=== PATIENT | female | born 1995 | race Caucasian/White ===

== ENCOUNTER → 2021-01-16 10:08 | Outpatient (CLI) | payer OTHER, SELFPAY ==
[2021-01-16 20:40] LABS: Urine N gonorrhoeae NOT DETECTED
[2021-01-16 21:03] LABS: Urine Chlamydia NOT DETECTED
[2021-01-18 07:16] LABS: RPR Screen Non Reactive (Non Reactive)
[2021-01-20 17:42] LABS: HIV 1 & 2 Ab/Ag 4th Gen Combo NEGATIVE (NEGATIVE); Hep C Virus Ab w/Reflex Quant NEGATIVE s/c (NEGATIVE)
== END ==
PROVIDERS: PCP Physician Assistant Medical; Visit Provider Physician Assistant Medical
DX: Z20.2 Contact with and (suspected) exposure to infections with a predominantly sexual mode of transmission (principal)
CPT/HCPCS: 86592; 86803; 87389; 87491; 87591

== ENCOUNTER → 2021-03-05 10:18 | Outpatient (CLI) | payer OTHER, SELFPAY ==
[2021-03-05 19:16] LABS: Add Manual Diff / Slide Review NO; Basophils Absolute Auto 0 /uL (0-100); Basophils Percent Auto 0.5 % (0-2); Eosinophils Absolute Auto 100 /uL (0-450); Eosinophils Percent Auto 2.9 % (2-4); Hematocrit 41.4 % (36-46); Hemoglobin 13.9 g/dL (12.0-16.0); Lymphocytes Absolute Auto 1000 /uL (1100-4500); Lymphocytes Percent Auto 21.7 % (25-40); Mean Corpuscular HGB Conc 33.5 % (30-36); Mean Corpuscular Hemoglobin 30.7 PG (26-34); Mean Corpuscular Volume 91.4 fL (80-100); Monocytes Absolute Auto 500 /uL (0-900); Monocytes Percent Auto 9.8 % (3-14); Neutrophils Absolute Auto 3000 /uL (1500-7000); Neutrophils Percent Auto 65.1 % (50-75); Platelet Count 320 X10^3/uL (150-400); Red Blood Cell Count 4.53 X10^6/uL (4.0-5.2); Red Cell Distribution Width 12.7 % (11.6-14.8); White Blood Cell Count 4.6 X10^3/uL (4.5-11.0)
[2021-03-05 19:23] LABS: Alanine Aminotransferase 16 IU/L (<35); Albumin 4.7 g/dL (3.5-5.0); Albumin Globulin Ratio 1.6 (1.0-2.8); Alkaline Phosphatase 49 U/L (38-126); Aspartate Aminotransferase 25 IU/L (14-36); BUN Creatinine Ratio 20.8 (6-22); Blood Urea Nitrogen 15 mg/dL (7-17); Calcium 9.8 mg/dL (8.4-10.2); Carbon Dioxide 32 mmol/L (22-32); Chloride 100 mmol/L (98-107); Estimated Glomerular Filt Rate > 60.0 mL/min (>60); Glucose 88 mg/dL (70-100); HEMOLYSIS < 15 (0-50); Potassium 4.2 mmol/L (3.4-5.1); Sodium 140 mmol/L (137-145); Total Protein 7.7 g/dL (6.3-8.2)
[2021-03-05 19:49] LABS: TSH w/ Reflex to FT4 2.58 uIU/mL (0.47-4.68)
== END ==
PROVIDERS: PCP Physician Assistant Medical; Visit Provider Physician Assistant
DX: F32.9 Major depressive disorder, single episode, unspecified (principal); F41.9 Anxiety disorder, unspecified; Z79.899 Other long term (current) drug therapy; Z83.49 Family history of other endocrine, nutritional and metabolic diseases
CPT/HCPCS: 80053; 84443; 85025

== ENCOUNTER → 2021-04-25 09:12 | Outpatient (CLI) | payer OTHER, SELFPAY ==
[2021-04-25 20:04] LABS: Add Manual Diff / Slide Review NO; Basophils Absolute Auto 0 /uL (0-100); Basophils Percent Auto 0.7 % (0-2); Eosinophils Absolute Auto 400 /uL (0-450); Eosinophils Percent Auto 8.5 % (2-4); Hematocrit 40.4 % (36-46); Hemoglobin 13.4 g/dL (12.0-16.0); Lymphocytes Absolute Auto 1100 /uL (1100-4500); Mean Corpuscular HGB Conc 33.1 % (30-36); Mean Corpuscular Volume 90.7 fL (80-100); Monocytes Absolute Auto 500 /uL (0-900); Monocytes Percent Auto 10.2 % (3-14); Neutrophils Absolute Auto 2500 /uL (1500-7000); Neutrophils Percent Auto 55.6 % (50-75); Platelet Count 280 X10^3/uL (150-400); Red Blood Cell Count 4.46 X10^6/uL (4.0-5.2); Red Cell Distribution Width 13.1 % (11.6-14.8); White Blood Cell Count 4.5 X10^3/uL (4.5-11.0)
[2021-04-25 21:30] LABS: Urine N gonorrhoeae NOT DETECTED
[2021-04-25 21:40] LABS: Urine Chlamydia DETECTED
[2021-04-25 21:49] LABS: HIV 1 & 2 Ab/Ag 4th Gen Combo NEGATIVE (NEGATIVE); Hep C Virus Ab w/Reflex Quant NEGATIVE s/c (NEGATIVE)
[2021-04-27 09:12] LABS: RPR Screen Non Reactive (Non Reactive)
[2021-04-28 13:09] LABS: HSV I/II IgM <0.91 Ratio (0.00-0.90)
== END ==
PROVIDERS: PCP Physician Assistant Medical; Visit Provider Physician Assistant Medical
DX: Z20.2 Contact with and (suspected) exposure to infections with a predominantly sexual mode of transmission (principal); R79.9 Abnormal finding of blood chemistry, unspecified
CPT/HCPCS: 85025; 86592; 86694; 86803; 87389; 87491; 87591

== ENCOUNTER → 2021-05-08 12:11 | Outpatient (CLI) | payer OTHER, SELFPAY ==
[2021-05-08 20:23] LABS: Urine N gonorrhoeae NOT DETECTED
[2021-05-08 20:34] LABS: Urine Chlamydia NOT DETECTED
== END ==
PROVIDERS: PCP Physician Assistant Medical; Visit Provider Physician Assistant Medical
DX: Z20.2 Contact with and (suspected) exposure to infections with a predominantly sexual mode of transmission (principal)
CPT/HCPCS: 87491; 87591

== ENCOUNTER → 2021-09-03 13:42 | Outpatient (CLI) | payer OTHER, SELFPAY ==
--- NOTE | 2021-10-10 16:50 | P.HOLT.S_ITS ---
Template Worker Report Referral & Results Date Patient Seen: 09/03/21 Requesting provider: Margo Dave Indication: Palpitations Duration of monitoring (days): 12 Diary information: There were 145 patient triggered events and 1 patient diary entry Patient triggered events were variably associated with (within 45 seconds) sinus rhythm, simple PACs, and simple PVCs Patient diary events were associated with sinus rhythm and simple PVCs Data: Minimum heart rate identified was 40 beats per minute at 01:38 on 09/09/2021 Maximum heart rate was 163 beats per minute at 10:46 on 09/06/2021 Less than 1% of identified beats were ventricular or supraventricular ectopic in origin, which would classify them as rare. 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 Patient events seem to be associated with simple PACs and PVCs Clinical correlation suggested
== END ==
PROVIDERS: Referring Provider Physician Assistant; Visit Provider Physician Assistant
DX: R00.2 Palpitations (principal)
CPT/HCPCS: 93246; 93248

== ENCOUNTER 2022-05-08 10:49 | Emergency (ER) | payer OTHER, SELFPAY ==
[2022-05-08 11:02] VITALS: BP 125/80; PULSE 83; RESP 14; TEMP 36.7; O2SAT 99; BMI 22.9
--- NOTE | 2022-05-08 11:23 | DI.RAD.S_ITS ---
PROCEDURE: XR CHEST 1V INDICATIONS: chest pain TECHNIQUE: One view of the chest was acquired. COMPARISON: None. FINDINGS: Surgical changes and devices: None. Lungs and pleura: Lungs are clear. No pleural effusions or pneumothorax. Mediastinum: Mediastinal contours appear normal. Heart size is normal. Bones and chest wall: No suspicious bony lesions. Overlying soft tissues appear unremarkable. IMPRESSION: No acute pulmonary process. Dictated by: Monserrat Shepherd M.D. on 05/08/2022 at 11:58 Approved by: Monserrat Shepherd M.D. on 05/08/2022 at 11:58
--- NOTE | 2022-05-08 11:25 | ED_ITS ---
HPI - Extremity Problem General Chief complaint: Extremity Problem,Nontraumatic Stated complaint: pain LT side shoulder looking up/down makes worse Time Seen by Provider: 05/08/22 11:16 Source: patient Mode of arrival: Ambulatory History of Present Illness HPI Narrative: Patient 27-year-old female complains of reproducible left scapular pain that radiates to the left shoulder. Increased pain with rotating her head and neck to the right and tilting her chin up. Patient states she was sitting in her car riding the [place] when she had sudden onset discomfort. She got up to walk around and was on her phone to keep distracted however she became dizzy and diaphoretic. No nausea no vomiting no syncope. Pain is better now. No primary family history of coronary disease. Patient's not smoke. Denies any drug use. Does have history of anxiety and depression. No prior history coronary disease for herself. Did have Holter monitor october of this year with primary care. 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 Patient then seemed to be associated with simple PACs and PVCs. Related Data Previous Rx's Medication Instructions Recorded alprazolam 0.5 mg tablet 0.5 mg PO BID PRN anxiety #30 tabs 03/05/21 citalopram 20 mg tablet 20 mg PO DAILY #90 tabs 11/12/21 Allergies Allergy/AdvReac Type Severity Reaction Status Date / Time No Known Drug Allergies Allergy Verified 05/08/22 11:07 Review of Systems Review of Systems Narrative: GENERAL: negative chills, fatigue, malaise, fever, positive sweats. HEENT: negative sinus pain, ear pain, sore throat RESPIRATORY: negative dyspnea, cough CARDIOVASCULAR: negative chest pain, palpitations GASTROINTESTINAL: Positive nausea, negative vomiting, abdominal pain : negative dysuria, frequency, hematuria MUSCULOSKELETAL: negative muscle or bony pain SKIN: negative rash, skin lesions NEUROLOGIC: negative weakness, numbness, positive dizziness ROS Unobtainable: All systems reviewed & are unremarkable except as noted in HPI and below Patient History Medical History Encounter for school history and physical examination Irregular menstrual cycle Surgical History Anesthesia [place] teeth removed (~2014) Family History Mother Stroke Social History Smoking Status: Former smoker Smoking Status: Former smoker alcohol intake frequency: holidays/special occasions only Substance Use Type: does not use Exam Narrative Exam Narrative: GENERAL: in no distress, not toxic not dyspneic HEAD: Normocephalic. EYES: Pupils equal round No scleral icterus. ENT: Mucous membranes moist. NECK: Trachea midline. CARDIOVASCULAR: Regular rate and rhythm without murmurs RESPIRATORY: Clear to auscultation. Breath sounds equal bilaterally. No wheezes, rales, or rhonchi. GASTROINTESTINAL: Abdomen soft, non-tender EXTREMITIES: No gross deformities. BACK: No flank tenderness. NEURO: AOx4. SKIN: Warm and dry PSYCH: Not anxious, is cooperative Initial Vital Signs Initial Vital Signs: Vital Signs Temperature 98.1 F 05/08/22 11:02 Pulse Rate 83 05/08/22 11:02 Respiratory Rate 14 05/08/22 11:02 Blood Pressure 125/80 05/08/22 11:02 Pulse Oximetry 99 05/08/22 11:02 Oxygen Delivery Method 05/08/22 11:02 Scores HEART Score Heart Score history: Slightly Suspicious Heart Score EKG: Normal Heart Score Age: < 45 years old Heart Score risk factors: No known risk factors Heart Score troponin: < or = to normal limit Heart Score Total: 0 Course Course Course Narrative: No new issues during course of stay Orders Ordered: Discontinued Medications Ketorolac Tromethamine (Ketorolac 30 Mg/Ml Vial) 15 mg IV NOW ONE Stop: 05/08/22 11:24 Last Admin: 05/08/22 12:57 Dose: Not Given Documented By: TASHIA Reevaluation(s) Reevaluation #1: Patient has decided not to proceed with EKG blood work. She states she feels like she over-reacted. I did review with her with the dizziness and sweating and nausea and I would recommend her to stay for further testing. She states she does not want to stay for these tests. Reviewed with her risks and benefits of testing as well as leaving against medical advice. She is awake alert oriented x4. Time: 12:24 Vital Signs Vital signs: Vital Signs - 8 hr 05/08/22 11:02 Temperature 98.1 F Pulse Rate 83 Respiratory Rate 14 Blood Pressure 125/80 Pulse Oximetry 99 Oxygen Delivery Method Room Air MDM - Extremity (Nontraumatic) Differential Diagnosis Differential diagnosis: Likely other (Muscular spasm/atypical chest pain/PE/dissection/anxiety) MDM Narrative Medical decision making narrative: Patient is a 27-year-old female in a complains of left scapular discomfort as reproducible and radiates up to the left shoulder. Increased with rotating head and neck to the right until tension up. Has history of anxiety and depression with low heart risk score and risk factors. No primary family history of coronary disease. I ordered EKG chest x-ray D-dimer troponin CMP CBC as part of her workup. Differential diagnosis includes but not limited to atypical chest pain dissection pulmonary embolism muscular strain. 12:24 p.m.. Implore with patient to stay for further testing. She is awake alert or x4. Risk of leaving against medical advice reviewed with her. Risk of heart attack primary injury worsening symptoms loss of limb or organ but not limited to these risks reviewed with her. She does not want to stay for further testing. Benefits of further testing and observation for cardiac/pulmonary/pulmonary embolism/dissection reviewed with her Discharge Plan Departure Patient Disposition: Left Against Medical Advice Clinical Impression: Left against medical advice Prescriptions: No Action citalopram 20 mg tablet 20 mg PO DAILY Qty: 90 4RF alprazolam 0.5 mg tablet 0.5 mg PO BID PRN (Reason: anxiety) Qty: 30 0RF Rx Instructions: TAKE 1-2 TABS (0.5-1 MG) BY MOUTH up to 2 TIMES A DAYS only as needed FOR break-through ANXIETY/Panic. Stand Alone Forms: Against Medical Advice
[2022-05-08 12:25] VITALS: BP 106/72; PULSE 75; TEMP 36.7; O2SAT 96
== END 2022-05-08 12:26 | disposition left against medical advice (07) ==
PROVIDERS: Emergency Provider Emergency Medicine; PCP Physician Assistant
DX: R07.9 Chest pain, unspecified (principal)
CPT/HCPCS: 71045; 99281; 99283

== ENCOUNTER → 2022-06-09 13:38 | Outpatient (CLI) | payer OTHER, SELFPAY ==
[2022-06-11 03:06] LABS: C.trachomatis RNA Negative (Negative); N.gonorrhoeae RNA Negative (Negative)
== END ==
PROVIDERS: PCP Physician Assistant; Visit Provider Physician Assistant
DX: J02.9 Acute pharyngitis, unspecified (principal)
CPT/HCPCS: 87491; 87591

== ENCOUNTER → 2022-09-22 13:02 | Outpatient (CLI) | payer OTHER, SELFPAY ==
[2022-09-24 16:58] LABS: HIV 1 & 2 Ab/Ag 4th Gen Combo NEGATIVE (NEGATIVE); Hep C Virus Ab w/Reflex Quant NEGATIVE s/c (NEGATIVE)
[2022-09-25 09:32] LABS: HSV 2 IGG AB < 0.91 index (0.00-0.90); HSV1IGG < 0.91 index (0.00-0.90)
[2022-09-25 12:11] LABS: RPR Screen Non Reactive (Non Reactive)
== END ==
PROVIDERS: PCP Physician Assistant; Visit Provider Physician Assistant
DX: Z11.3 Encounter for screening for infections with a predominantly sexual mode of transmission (principal)
CPT/HCPCS: 86592; 86695; 86696; 86803; 87389

== ENCOUNTER → 2023-07-13 10:24 | Outpatient (CLI) | payer SELFPAY ==
[2023-07-13 19:47] LABS: Alanine Aminotransferase 17 IU/L (<35); Albumin 4.5 g/dL (3.5-5.0); Albumin Globulin Ratio 1.4 (1.0-2.8); Alkaline Phosphatase 48 U/L (38-126); Aspartate Aminotransferase 25 IU/L (14-36); BUN Creatinine Ratio 23.2 (6-22); Bilirubin Total 0.7 mg/dL (0.2-1.3); Blood Urea Nitrogen 16 mg/dL (7-17); Calcium 9.9 mg/dL (8.4-10.2); Carbon Dioxide 28 mmol/L (22-32); Chloride 99 mmol/L (98-107); Estimated Glomerular Filt Rate > 60 mL/min (>60); Globulin 3.3 g/dL (1.7-4.1); Glucose 83 mg/dL (70-100); HEMOLYSIS < 15 (0-50); Potassium 4.5 mmol/L (3.4-5.1); Sodium 136 mmol/L (137-145); Total Protein 7.8 g/dL (6.3-8.2)
[2023-07-13 20:00] LABS: HCG Quantitative /Beta subunit < 2.4 mIU/mL; Prolactin 23.3 ng/mL (3.0-18.6)
[2023-07-13 20:05] LABS: Follicle Stimulating Hormone 2.77 mIU/mL
[2023-07-13 20:16] LABS: Testosterone 77.5 ng/dL (5.71-77.0)
[2023-07-13 20:24] LABS: Add Manual Diff / Slide Review NO; Basophils Absolute Auto 100 /uL (0-100); Basophils Percent Auto 1.1 % (0-2); Eosinophils Absolute Auto 500 /uL (0-450); Eosinophils Percent Auto 7.7 % (2-4); Hematocrit 43.2 % (36-46); Hemoglobin 14.6 g/dL (12.0-16.0); Lymphocytes Absolute Auto 1700 /uL (1100-4500); Lymphocytes Percent Auto 27.5 % (25-40); Mean Corpuscular HGB Conc 33.7 % (30-36); Mean Corpuscular Hemoglobin 30.9 PG (26-34); Mean Corpuscular Volume 91.7 fL (80-100); Monocytes Absolute Auto 600 /uL (0-900); Monocytes Percent Auto 9.8 % (3-14); Neutrophils Absolute Auto 3200 /uL (1500-7000); Neutrophils Percent Auto 53.9 % (50-75); Platelet Count 311 X10^3/uL (150-400); Red Blood Cell Count 4.71 X10^6/uL (4.0-5.2); Red Cell Distribution Width 13.3 % (11.6-14.8)
== END ==
PROVIDERS: PCP Physician Assistant; Visit Provider Family Medicine
DX: N91.2 Amenorrhea, unspecified (principal)
CPT/HCPCS: 80053; 82670; 83001; 83498; 84146; 84403; 84443; 84702; 85025

== ENCOUNTER → 2023-07-29 16:40 | Outpatient (CLI) | payer SELFPAY | PROVIDERS: PCP Physician Assistant; Visit Provider Physician Assistant Medical | DX: T14.8XXA Other injury of unspecified body region, initial encounter (principal); W50.3XXA Accidental bite by another person, initial encounter | CPT/HCPCS: 87070; 87075; 87077; 87147; 87186; 87205 ==

== ENCOUNTER → 2023-09-15 11:17 | Outpatient (CLI) | payer SELFPAY ==
[2023-09-15 20:36] LABS: Add Manual Diff / Slide Review NO; Basophils Absolute Auto 100 /uL (0-100); Eosinophils Absolute Auto 300 /uL (0-450); Eosinophils Percent Auto 5.6 % (2-4); Hematocrit 43.8 % (36-46); Hemoglobin 14.7 g/dL (12.0-16.0); Lymphocytes Absolute Auto 1200 /uL (1100-4500); Lymphocytes Percent Auto 21.8 % (25-40); Mean Corpuscular HGB Conc 33.6 % (30-36); Mean Corpuscular Hemoglobin 30.8 PG (26-34); Mean Corpuscular Volume 91.7 fL (80-100); Monocytes Absolute Auto 600 /uL (0-900); Neutrophils Absolute Auto 3300 /uL (1500-7000); Neutrophils Percent Auto 60.6 % (50-75); Platelet Count 318 X10^3/uL (150-400); Red Blood Cell Count 4.78 X10^6/uL (4.0-5.2); Red Cell Distribution Width 12.8 % (11.6-14.8); White Blood Cell Count 5.5 X10^3/uL (4.5-11.0)
[2023-09-15 21:07] LABS: TSH w/ Reflex to FT4 0.07 uIU/mL (0.47-4.68)
== END ==
PROVIDERS: PCP Physician Assistant; Visit Provider Physician Assistant
DX: R53.83 Other fatigue (principal); N92.6 Irregular menstruation, unspecified; Z83.49 Family history of other endocrine, nutritional and metabolic diseases; R79.89 Other specified abnormal findings of blood chemistry; N64.4 Mastodynia
CPT/HCPCS: 84146; 84439; 84443; 85025

== ENCOUNTER → 2024-11-27 12:16 | Outpatient (CLI) | payer SELFPAY | PROVIDERS: PCP Physician Assistant; Visit Provider Physician Assistant | DX: J03.80 Acute tonsillitis due to other specified organisms (principal); B96.89 Other specified bacterial agents as the cause of diseases classified elsewhere | CPT/HCPCS: 87070 ==

== ENCOUNTER 2024-11-27 20:29 | Emergency (ER) | payer SELFPAY ==
[2024-11-27 21:11] VITALS: BP 133/68; PULSE 78; RESP 14; TEMP 37.3; O2SAT 98; BMI 21.6
[2024-11-27] MEDS: MAG HYDROX/ALUMINUM/SIMETH SUS 20 ML, LIDOCAINE VISCOUS 2% 15 ML PO (21:24)
[2024-11-27] MEDS: ONDANSETRON 4 MG/2 ML INJ IV (21:24)
[2024-11-27 21:45] LABS: Add Manual Diff / Slide Review NO; Basophils Absolute Auto 100 /uL (0-100); Basophils Percent Auto 0.6 % (0-2); Eosinophils Absolute Auto 300 /uL (0-450); Eosinophils Percent Auto 3.3 % (2-4); Hematocrit 38.9 % (36-46); Hemoglobin 13.2 g/dL (12.0-16.0); Lymphocytes Absolute Auto 1400 /uL (1100-4500); Lymphocytes Percent Auto 14.9 % (25-40); Mean Corpuscular Hemoglobin 30.6 PG (26-34); Monocytes Absolute Auto 1100 /uL (0-900); Monocytes Percent Auto 11.3 % (3-14); Neutrophils Absolute Auto 6600 /uL (1500-7000); Neutrophils Percent Auto 69.9 % (50-75); Platelet Count 308 X10^3/uL (150-400); Red Blood Cell Count 4.33 X10^6/uL (4.0-5.2); Red Cell Distribution Width 13.5 % (11.6-14.8); White Blood Cell Count 9.5 X10^3/uL (4.5-11.0)
[2024-11-27 21:48] LABS: Pregnancy Test Urine Negative (Negative)
[2024-11-27 21:55] LABS: Alanine Aminotransferase 16 IU/L (<35); Albumin 4.5 g/dL (3.5-5.0); Albumin Globulin Ratio 1.3 (1.0-2.8); Alkaline Phosphatase 50 U/L (38-126); Aspartate Aminotransferase 21 IU/L (14-36); BUN Creatinine Ratio 20.2 (6-22); Bilirubin Total 0.4 mg/dL (0.2-1.3); Blood Urea Nitrogen 17 mg/dL (7-17); Calcium 10.4 mg/dL (8.4-10.2); Carbon Dioxide 31 mmol/L (22-32); Chloride 101 mmol/L (98-107); Estimated Glomerular Filt Rate > 60 mL/min (>60); Globulin 3.4 g/dL (1.7-4.1); Glucose 82 mg/dL (70-99); HEMOLYSIS < 15 (0-50); Lipase 82 U/L (23-300); Potassium 4.6 mmol/L (3.4-5.1); Sodium 139 mmol/L (137-145); Total Protein 7.9 g/dL (6.3-8.2)
[2024-11-28 05:49] VITALS: BP 120/74; PULSE 60; RESP 18; O2SAT 99
--- NOTE | 2024-11-28 05:58 | ED_ITS ---
HPI - Abdominal Pain General Chief Complaint: Abdominal Pain Stated Complaint: upper stomach pain burning feeling Time Seen by Provider: 11/28/24 05:58 Source: patient Mode of arrival: Ambulatory History of Present Illness HPI narrative: 29-year-old female complains of epigastric area discomfort for the last couple of days, has had sore throat, had been taking ibuprofen, diagnosed 2 days ago with tonsillitis, taking oral amoxicillin and prednisone. Having increasing epigastric area discomfort. Some loose stools without black or red color. No history of previous gastritis or ulcers stomach or duodenum. No prior endoscopy. Related Data Previous Rx's ?Medication ?Instructions ?Recorded amoxicillin 875 mg tablet 875 mg PO BID 10 days #20 ta bs 11/27/24 prednisone 10 mg tablet 10 mg PO .Q. AM 5 days #5 ta bs 11/27/24 Allergies Allergy/AdvReac Type Severity Reaction Status Date / Time No Known Drug Allergies Allergy Verified 11/27/24 12:07 Patient History Medical History Depression (~2019) Encounter for school history and physical examination Anxiety (~2019) Irregular menstrual cycle Surgical History Anesthesia [place] teeth removed (~2014) Family History Mother Stroke Social History Smoking Status: Current every day smoker Smoking Status: Current every day smoker alcohol intake frequency: holidays/special occasions only Exam Narrative Exam Narrative: GENERAL: Well-developed patient, in mild distress. HEAD: Atraumatic. Normocephalic. EYES: Pupils equal round and reactive. Extraocular motions intact. No scleral icterus. No injection or drainage. ENT: Nose without bleeding, purulent drainage. Throat without erythema, tonsillar hypertrophy or exudate. Airway patent. Some tonsillar redness without gross exudate. Normal phonation. Normal range of motion neck. NECK: Trachea midline. Non tender CARDIOVASCULAR: Regular rate and rhythm without murmurs, gallops, or rubs. RESPIRATORY: Clear to auscultation. Breath sounds equal bilaterally. No wheezes, rales, or rhonchi. GASTROINTESTINAL: Abdomen soft, non-tender, nondistended. EXTREMITIES: No edema or joint tenderness. BACK: Nontender without deformity or crepitance. No flank tenderness. NEURO: AOx3. Motor functions grossly nonfocal. SKIN: No rash or erythema of visible areas Initial Vital Signs Initial Vital Signs: Vital Signs Temperature 99.1 F 11/27/24 21:11 Pulse Rate 78 11/27/24 21:11 Respiratory Rate 14 11/27/24 21:11 Blood Pressure 133/68 11/27/24 21:11 Pulse Oximetry 98 11/27/24 21:11 Oxygen Delivery Method Room Air 11/27/24 21:11 Course Orders Ordered: Discontinued Medications Al Hydrox/Mg Hydrox/Simethicone 20 ml/ Lidocaine HCl 15 ml 0 ml PO NOW ONE Stop: 11/27/24 21:18 Last Admin: 11/27/24 21:24 Dose: 35 ml Documented By: DYLAN Ondansetron HCl (Ondansetron 4 Mg/2 Ml Inj) 4 mg IV NOW PRN PRN Reason: Nausea And Vomiting Last Admin: 11/27/24 21:24 Dose: 4 mg Documented By: DYLAN Ondansetron HCl (Ondansetron 4 Mg Odt) 4 mg PO NOW PRN PRN Reason: Nausea And Vomiting Pantoprazole Sodium (Pantoprazole 40 Mg Vial) 40 mg IV NOW ONE Stop: 11/28/24 06:10 Last Admin: 11/28/24 06:25 Dose: 40 mg Documented By: DYLAN Tramadol HCl (Tramadol 50 Mg Prepack) 1 bottle MISC DIRECTED ONE Stop: 11/28/24 06:49 Vital Signs Vital signs: Vital Signs - 8 hr 11/28/24 06:30 11/28/24 06:30 11/28/24 07:00 Pulse Rate 55 L Respiratory Rate 16 Blood Pressure 115/67 108/65 Pulse Oximetry 97 Oxygen Delivery Method Room Air 11/28/24 07:00 Pulse Rate 53 L Respiratory Rate 16 Blood Pressure Pulse Oximetry 97 Oxygen Delivery Method Room Air MDM - Abdominal Pain Lab Data Attestation: I reviewed the patient's lab results. Lab results narrative: White blood cell count 9500, hemoglobin 13.2, platelets adequate. Glucose 82. Normal renal function. Normal electrolytes. Normal serum carbon dioxide. Liver functions normal. Lipase normal. Urine test negative. Urine dip negative. 11/27/24 21:34 11/27/24 21:34 Labs: Lab Results 11/27/24 Range/Units 21:34 WBC 9.5 (4.5-11.0) X10^3/uL RBC 4.33 (4.0-5.2) X10^6/uL Hgb 13.2 (12.0-16.0) g/dL Hct 38.9 (36-46) % MCV 90.0 (80-100) fL MCH 30.6 (26-34) PG MCHC 34.0 (30-36) % RDW 13.5 (11.6-14.8) % Plt Count 308 (150-400) X10^3/uL Neut % (Auto) 69.9 (50-75) % Lymph % (Auto) 14.9 L (25-40) % [place] % (Auto) 11.3 (3-14) % Eos % (Auto) 3.3 (2-4) % Baso % (Auto) 0.6 (0-2) % Neut # (Auto) 6600 (2152-3730) /uL Lymph # (Auto) 1400 (3063-2585) /uL [place] # (Auto) 1100 H (0-900) /uL Eos # (Auto) 300 (0-450) /uL Baso # (Auto) 100 (0-100) /uL Sodium 139 (137-145) mmol/L Potassium 4.6 (3.4-5.1) mmol/L Chloride 101 (98-107) mmol/L Carbon Dioxide 31 (22-32) mmol/L BUN 17 (7-17) mg/dL Creatinine 0.84 (0.52-1.04) mg/dL Estimated GFR > 60 (>60) mL/min BUN/Creatinine Ratio 20.2 (6-22) Glucose 82 (70-99) mg/dL Calcium 10.4 H (8.4-10.2) mg/dL Total Bilirubin 0.4 (0.2-1.3) mg/dL AST 21 (14-36) IU/L ALT 16 (<35) IU/L Alkaline Phosphatase 50 (38-126) U/L Total Protein 7.9 (6.3-8.2) g/dL Albumin 4.5 (3.5-5.0) g/dL Globulin 3.4 (1.7-4.1) g/dL Albumin/Globulin Ratio 1.3 (1.0-2.8) Lipase 82 (23-300) U/L Urine Test Negative (Negative) Point of care testing: Urine Dip Bedside Urine Glucose Negative Bedside Urine Bilirubin - Negative Bedside Urine Ketone - Negative Urine Specific [place] 1.020 Bedside Urine Occult Blood - Negative Bedside Urine pH 6.0 Bedside Urine Protein - Negative Bedside Urine Urobilinogen - Negative Bedside Urine Nitrite - Negative Bedside Urine Leukocytes - Negative Esterase MDM Narrative Medical decision making narrative: 29-year-old female with 2 days duration epigastric discomfort, recent sore throat, prescribed amoxicillin 2 days ago along with prednisone, had been taking ibuprofen. Increasing epigastric discomfort. Afebrile, sirs screen negative. Mild tenderness epigastrium. Screening labs unremarkable. She was given oral Maalox in the waiting room, had transient relief. IV Protonix ordered. We discussed advanced imaging such as CT scanning, not likely worth the risks of radiation. Seems less likely gallbladder disease. Suspected gastritis given recent exposure to ibuprofen and steroid for tonsillitis. Trial of omeprazole for the next couple of weeks. Patient agreeable to this plan. Advised to not take ibuprofen. Home pack tramadol to use if needed. Discharge Plan Departure Patient Disposition: Home Clinical Impression: Epigastric abdominal pain Activity Restrictions/Additional Instructions: Epigastric area abdominal pain for the last couple of days, in context of recent tonsillitis diagnosis. Taking amoxicillin antibiotic, along with prednisone, also recent use of ibuprofen for pain control. Ibuprofen and steroids can bother of the stomach lining in cause gastritis symptoms, which would fit in with your epigastric area discomfort. Transient improvement with Maalox while in the waiting room. IV Protonix antacid dose given. Consider use of [id number] over omeprazole 20 mg tablets, taking 1 tablet twice a day for a week, then 1 tablet daily for a week. Continue taking your antibiotic and prednisone as prescribed. Try to avoid use of ibuprofen for now that might further inflamed your stomach lining. Consider use of Tylenol as needed for discomfort. Home pack of tramadol opiate analgesic pain reliever also dispensed from the emergency department, to use if needed for pain control, that she would not bother your stomach lining. Recheck if symptoms not improved with your regular doctor in the next few days. Return to this/nearest emergency department for any change worsening symptoms or any concerns prior. Prescriptions: No Action prednisone 10 mg tablet 10 mg PO .Q. AM 5 Days Qty: 5 0RF Rx Instructions: Take in AMs with soft food and a full glass of water. amoxicillin 875 mg tablet 875 mg PO BID 10 Days Qty: 20 0RF Referrals: Margo Dave PA-C [Primary Care Provider, Medical] Stand Alone Forms: Patient Portal/API
[2024-11-28 06:00] VITALS: BP 123/75; PULSE 64; RESP 18; O2SAT 98
[2024-11-28] MEDS: PANTOPRAZOLE 40 MG VIAL IV (06:25)
[2024-11-28 06:30] VITALS: BP 115/67; PULSE 55; RESP 16; O2SAT 97
[2024-11-28 07:00] VITALS: BP 108/65; PULSE 53; RESP 16; O2SAT 97
[2024-11-28] MEDS: TRAMADOL 50 MG PREPACK 1 BOTTLE MISC (07:10)
== END 2024-11-28 07:24 | disposition home or self-care (01) ==
PROVIDERS: Emergency Provider Emergency Medicine; PCP Physician Assistant
DX: R10.13 Epigastric pain (principal)
CPT/HCPCS: 36415; 80053; 81003; 81025; 83690; 85025; 96374; 96375; 99284; J2405; J2470